=== PATIENT | male | born 1960 | race Caucasian/White ===

== ENCOUNTER 2018-06-07 09:04 | Emergency (ER) | payer OTHER ==
--- NOTE | 2018-06-07 09:26 | PDOC ---
History of Present Illness - General Chief Complaint: Psychiatric Stated Complaint: HOMELESS Time Seen by Provider: 06/07/18 09:06 - History of Present Illness Initial Comments: 06/07/18 09:21 57 M with h/o COPD, polysubstance abuse, presents to ED seeking resources for homeless shelters. Pt states he is a current resident at [facility]. However, he states that the staff there does not treat him well. He denies physical abuse but states that they do not feed him regularly and are rude to him. Pt denies any medical complaints today. Denies SI/HI/AVH. Past History - Past Medical History Allergies/Adverse Reactions: Allergies Allergy/AdvReac Type Severity Reaction Status Date / Time No Known Allergies Allergy Verified 06/07/18 09:10 Home Medications: Ambulatory Orders NK [No Known Home Medication] 06/07/18 Review of Systems - Review of Systems Comments:: 06/07/18 09:26 "GENERAL/CONSTITUTIONAL: No fever or chills. No weakness. HEAD, EYES, EARS, NOSE AND THROAT: No change in vision. No ear pain or discharge. No sore throat. CARDIOVASCULAR: No chest pain, no shortness of breath, no loss of consciousness RESPIRATORY: No cough, wheezing, or hemoptysis. GASTROINTESTINAL: No nausea, vomiting, diarrhea or constipation. GENITOURINARY: No dysuria, frequency, or change in urination. MUSCULOSKELETAL: No joint or muscle swelling or pain. No neck or back pain. SKIN: No rash NEUROLOGIC: No vertigo, no change in strength/sensation. ENDOCRINE: No increased thirst. No abnormal weight change. HEMATOLOGIC/LYMPHATIC: No anemia, easy bleeding, or history of blood clots. ALLERGIC/IMMUNOLOGIC: No hives or skin allergy. *Physical Exam - Physical Exam Comments: 06/07/18 09:26 "GENERAL: Awake, alert, and fully oriented, in no acute distress. HEAD: No signs of trauma EYES: PERRLA, EOMI, sclera anicteric, conjunctiva clear ENT: Auricles normal inspection, hearing grossly normal, nares patent, oropharynx clear without exudates. Moist mucosa NECK: Nontender, no stepoffs, Normal ROM, supple, no lymphadenopathy, JVD, or masses LUNGS: Breath sounds equal, clear to auscultation bilaterally. No wheezes, and no crackles HEART: Regular rate and rhythm, normal S1 and S2, no murmurs, rubs or gallops ABDOMEN: Soft, nontender, normoactive bowel sounds. No guarding, no rebound. No masses EXTREMITIES: Normal range of motion, no edema. No clubbing or cyanosis. No cords, erythema, or tenderness NEUROLOGICAL: Cranial nerves II through XII intact. 5/5 strength and sensation in all extremities, Normal speech, normal gait, normal cerebellar function SKIN: Warm, Dry, normal turgor, no rashes or lesions noted. Medical Decision Making - Medical Decision Making 06/07/18 09:26 57 M with no medical complaints, presenting to ED seeking resources for shelters. - life skills worker to see pt 06/07/18 09:36 life skills worker spoke with pt, who states that his mother lives nearby on [address]. Pt states that he can go to her house. Pt is clinically sober and has capacity. Will DC to pt's mother's house. life skills worker to give pt [employer] for transportation. Pt is well appearing, with normal vitals. Clinically stable for DC at this time. I discussed the physical exam findings, ancillary test results and final diagnoses with the patient. I answered all of the patient's questions. The patient was satisfied with the care received and felt comfortable with the discharge plan and treatment plan. The patient agrees to follow up with the primary care physician within 24-72 hours. *DC/Admit/Observation/Transfer Diagnosis at time of Disposition: Homelessness - Discharge Dispostion Disposition: HOME Condition at time of disposition: Good - Referrals - Patient Instructions - Post Discharge Activity - Attestations Physician Attestion: 06/07/18 09:38 I, Dr. Magno Posadas MD, attest that this document has been prepared under my direction and personally reviewed by me in its entirety. I further attest, that it accurately reflects all work, treatment, procedures and medical decision -making performed by me.
[2018-06-07 09:37] VITALS: BP 142/94; PULSE 88; TEMP 97.7; BMI 23.3
== END 2018-06-07 10:25 | disposition home or self-care (01) ==
LOC: FER 09:04
DX: Z59.0 Homelessness (principal)
CPT/HCPCS: 99281-25

== ENCOUNTER → 2022-09-07 | Emergency (ER) | payer OTHER ==
[~2022-09-07] MED LIST: ACETAMINOPHEN 1000 MG/100 ML BAG IVPB ONE; DIPHTH,PERTUSS(ACELL),TET 0.5 ML DISP.SYRIN IM ONE; HALOPERIDOL LACTATE 5 MG/ML IM ONE; IVERMECTIN 3 MG TABLET PO ONE; PROPOFOL 20 ML ONE; PROPOFOL 200 MG/20 ML VIAL IVPUSH ONE; SODIUM CHLORIDE 0.9% 500 ML INFUS.BAG IV ONE; morphine CARPU-JECT 4 MG/1 ML DISP.SYRIN IVPUSH ONE; morphine SULFATE 4 MG/ML VIAL ONE
[2022-09-07 08:49] VITALS: TEMP 98.9; BMI 27.6
[2022-09-07 12:52] LABS: INR 1.14 (0.83-1.09); PROTHROMBIN TIME (PATIENT) 13.2 SEC (9.7-13.0)
[2022-09-07 12:55] LABS: ACTIVATED PTT 45.2 SECONDS (25.2-36.5)
[2022-09-07 13:07] LABS: BASO % 0.7 % (0-2.0); HEMATOCRIT 33.3 % (35.4-49); HEMOGLOBIN 10.5 GM/dL (11.7-16.9); MCH 25.7 pg (25.7-33.7); MCHC 31.5 g/dl (32.0-35.9); MEAN CELL VOLUME 81.7 fl (80-96); MEAN PLT VOLUME 7.7 fl (7.5-11.1); MONO % 10.2 % (3.8-10.2); NEUT % 69.1 % (42.8-82.8); PLATELET COUNT 317 10^3/uL (134-434); RBC 4.08 M/mm3 (4.00-5.60); RDW 16.5 % (11.9-15.9); WHITE BLOOD COUNT 8.6 K/mm3 (4.0-10.0)
[2022-09-07 13:10] LABS: BLOOD UREA NITROGEN 17.6 mg/dL (7-18); CALCIUM 8.4 mg/dL (8.5-10.1)
[2022-09-07 13:11] LABS: ALBUMIN 3.1 g/dl (3.4-5.0)
[2022-09-07 13:14] LABS: CREATININE 0.6 mg/dL (0.55-1.3)
[2022-09-07 13:15] LABS: BILIRUBIN,TOTAL 0.8 mg/dL (0.2-1); TOT PROT 5.9 g/dl (6.4-8.2)
[2022-09-07 14:30] VITALS: BP 158/72; PULSE 67; RESP 22
== END | disposition home or self-care (01) ==
LOC: JER 08:33
PROC: 0RSKXZZ Reposition Left Shoulder Joint, External Approach (ICD-10-PCS; principal; 2022-09-07)
PROC: 0HQ1XZZ Repair Face Skin, External Approach (ICD-10-PCS; 2022-09-07)
PROC: 3E033NZ Introduction of Analgesics, Hypnotics, Sedatives into Peripheral Vein, Percutaneous Approach (ICD-10-PCS; 2022-09-07)
PROC: 3E033GC Introduction of Other Therapeutic Substance into Peripheral Vein, Percutaneous Approach (ICD-10-PCS; 2022-09-07)
PROC: 3E033GC Introduction of Other Therapeutic Substance into Peripheral Vein, Percutaneous Approach (ICD-10-PCS; 2022-09-07)
PROC: 3E0234Z Introduction of Serum, Toxoid and Vaccine into Muscle, Percutaneous Approach (ICD-10-PCS; 2022-09-07)
PROC: 3E023GC Introduction of Other Therapeutic Substance into Muscle, Percutaneous Approach (ICD-10-PCS; 2022-09-07)
DX: S43.015A Anterior dislocation of left humerus, initial encounter (principal); S42.202A Unspecified fracture of upper end of left humerus, initial encounter for closed fracture; S01.111A Laceration without foreign body of right eyelid and periocular area, initial encounter; W01.0XXA Fall on same level from slipping, tripping and stumbling without subsequent striking against object, initial encounter
CPT/HCPCS: 12011-25; 23655; 36415; 70450-TC; 72125-TC; 73030-TC-LT-FY; 73060-TC-LT-FY; 80053; 85025; 85610; 85730; 90471; 90715; 93005; 93010; 96372; 96375; 99285-25